=== PATIENT | female | born 1955 | race Caucasian/White ===

== ENCOUNTER 2023-07-12 12:03 | Emergency (ER) | payer MEDICARE, SELFPAY ==
--- NOTE | ~2023-07-12 | XR_ITS ---
EXAMINATION: XR LUMBOSACRAL SPINE CLINICAL INFORMATION: Pain COMPARISON: None available. TECHNIQUE: Three views of the lumbosacral spine. FINDINGS: Minimal curvature the spine to the left. 5 lumbar type vertebral bodies are identified. Multilevel spurring. Mild vertebral body height losses of T12, L1, L2 and L3. Multilevel spurring. T12/L1, L1/L2 disc space narrowings. Pedicles and SI joints within normal limits. Phleboliths. Nonspecific bowel pattern. XR/XR lumbar spine 2-3V IMPRESSION: Mild degenerative changes and mild compression deformities.
--- NOTE | ~2023-07-12 | CT_ITS ---
EXAMINATION: CT HEAD WITHOUT CONTRAST CLINICAL INFORMATION: Trauma. Pain. COMPARISON: None available. TECHNIQUE: Contiguous axial imaging was performed from the skull base to vertex without intravenous administration of contrast. This CT examination was performed using dose optimization techniques as appropriate, variously including the following: *Automated exposure control *Adjustment of mA and/or kV according to patient size (this includes techniques or standardized protocols for targeted exams where dose is matched to indication/reason for exam; i.e. extremities or head) *Use of iterative reconstruction technique DLP: 578 mGy-cm FINDINGS: The lateral, third and fourth ventricles are normally outlined. The cortical sulci and basal cisterns are normally outlined as well. There is no acute territorial defect, hemorrhage or midline shift. The extra-axial spaces are unremarkable. Calvarium: Intact. Maxillofacial sinuses and mastoids: Clear as visualized. CT/CT head/brain wo IV con IMPRESSION: No acute intracranial pathology.
[2023-07-12 12:41] VITALS: BP 147/92; PULSE 64; RESP 17; TEMP 36.5; O2SAT 97; BMI 47.8
--- NOTE | 2023-07-12 12:44 | ED_ITS ---
HPI - General Adult General Chief complaint: Fall Stated complaint: fall back inj Time Seen by Provider: 07/12/23 19:57 Source: patient and RN notes reviewed Mode of arrival: ambulatory Limitations: no limitations History of Present Illness HPI narrative: 67-year-old female presents for evaluation of lower back pain. Patient reports that she slipped and fell backwards yesterday linear her buttocks She complains of back pain since. The pain radiates to the left side. Patient reports that she struck her head with denies any headache. She is on Coumadin Her pain is 7/10. Her pain is worse with walking. She walks at baseline with a cane Denies any fevers, chills Related Data Previous Rx's Medication Instructions Recorded oxycodone 5 mg tablet 5 mg PO TID PRN severe pain (scale 07/12/23 score 7-10) #15 tabs Allergies Allergy/AdvReac Type Severity Reaction Status Date / Time No Known Allergies Allergy Unverified 04/10/20 18:34 Review of Systems Constitutional: Constitutional: Denies chills, Denies fever(s) and Denies frequent falls Cardiovascular: Cardiovascular: Denies chest pain, Denies syncope and Denies dyspnea Respiratory: Respiratory: Denies cough and Denies dyspnea Gastrointestinal: Gastrointestinal: Denies abdominal pain, Denies nausea and Denies vomiting Musculoskeletal: Musculoskeletal: Reports back pain Integumentary/Breasts: Skin/Breast: Denies rash Neurologic: Denies syncope and Denies frequent falls PMFSH Social History Social History Smoked in Last 30 Days: No Use of substances other than those prescribed or required for medical reasons: No Advance Directives: No Advance Directives Information Provided: No Physical Exam ED Vital Signs: Vital Signs - 24 hr 07/12/23 12:41 07/12/23 19:28 Temperature 97.7 F 97.7 F Pulse Rate 64 60 Respiratory Rate 17 14 Blood Pressure 147/92 H 190/69 H Pulse Oximetry 97 97 Oxygen Delivery Method Room Air Room Air BMI result Body Mass Index 47.8 Const General: healthy appearing, comfortable, no acute distress, alert and awake Nutritional Appearance: well nourished Orientation/consciousness: patient oriented x3 HENMT Head: Yes normocephalic and Yes atraumatic Eyes Eyelids: Yes eyelids normal Conjunctivae: conjunctivae normal Sclerae: sclerae normal Corneas: corneas normal Pupils: Equal, round and reactive pupils present EOM: EOMs intact bilaterally Neck Neck: Yes full ROM Resp Effort & Inspection: normal respiratory effort, able to speak in complete sentences and not labored GI Inspection: No distended Palpation (GI): Soft to palpation, not firm, nontender, no guarding and not rigid Back/Spine/Pelvis Other: Patient has tenderness across the lumbar vertebral spine and paraspinous muscles bilaterally. Negative straight leg raise. Skin General skin exam: elasticity normal Neuro General: patient oriented x3 Cranial nerves: Yes Equal, round and reactive pupils present and Yes Bilaterally intact EOM present Cognition (Neuro): normal cognition Extrem Other: Moving all extremities well without any obvious deformities Course Course Course Narrative: RME- 67-year-old female presents for evaluation of lower back pain after a fall. Patient reports that she fell yesterday because she was caring her dogs. She fell backwards, hit her head. She is anticoagulated but denies loss of consciousness or significant headache. Plan for x-ray lumbar spine as well as CT scan the brain due to the anticoagulation. No neuro deficits Medical Decision Making Medical Decision Making MDM Narrative: 67-year-old female presents for evaluation a nonsyncopal fall. Plan for x-ray of the lumbar spine any of her discomfort. Given that she struck her head and is on Coumadin will get a CT scan the brain. Differential Diagnosis Differential Diagnoses: The differential diagnosis associated with the presenta tion includes Acute lower back pain Muscle strain Sciatica Radiculopathy Compression fracture Independent Interpretation I performed an independent interpretation of an: Plain X-Ray (Agree with Radiology interpretation) and CT Scan (No traumatic injury to the brain) Radiology Impression Discussion of test interpretation with radiology: I have reviewed the radiologist's reading. (Multiple compression deformities at T12, L1, L2, L3) Radiologist Impression: CT scan the brain without traumatic injury Discharge Plan Discharge Clinical Impression: Compression fracture of lumbar vertebra Patient Disposition: Home, Self-Care Instructions: Vertebral Compression Fracture (ED) Additional Instructions: You have a compression fracture of T12, L1, L2, L3. It is possible that there is some degree of chronicity to these or they may have all occurred from your fall Take oxycodone for severe or breakthrough pain This may make you sleepy, did not drink alcohol or drive taking Follow-up with your primary doctor You may also follow-up with Dr. Chen Neurosurgery Prescriptions: New oxycodone 5 mg tablet 5 mg PO TID PRN (Reason: severe pain (scale score 7-10)) Qty: 15 0RF Rx Instructions: Partial Fill upon patient request. Referrals: Joseph Chen MD, PhD [Physician] - (multiple compression fractures) Stand Alone Forms: Work/School Release Interventions: ED Discharge Assessment Last Done: 07/12/23 20:17 Discharge Date/Time: 07/12/23 20:18
[2023-07-12 19:28] VITALS: BP 190/69; PULSE 60; RESP 14; TEMP 36.5; O2SAT 97
== END 2023-07-12 20:18 | disposition home or self-care (01) ==
PROVIDERS: Emergency Provider Internal Medicine; PCP Internal Medicine
DX: M54.50 Low back pain, unspecified (principal); R51.9 Headache, unspecified
CPT/HCPCS: 70450; 72100; 99284

== ENCOUNTER 2024-12-20 14:19 | Outpatient (AMB) | payer MEDICARE, SELFPAY ==
--- NOTE | 2024-12-20 14:22 | MHC.OFFVIS ---
Vital Signs 12/20/24 14:24 Height 5 ft 4.17 in Weight 261 lb 8 oz BMI 44.6 BP 110/90 H Blood Pressure Location Lt brachial Position Sitting Pulse 92 Pulse Source Pulse Oximeter Pulse Oximetry (%) 98 Oxygen Delivery Method Room Air Intake Visit Reasons: RA Intake Note: Patient presents today for an RA follow up. Accompanied by: Self / Same As Patient Allergies No Known Allergies Allergy (Verified 12/20/24 14:24) HPI HPI RA: Details: R knee pain has gotten worse in the last 3 months. Last cortisone injection of right knee was 1 year ago. The one before the last benefited patient for a year. Pain in bilateral feet and knee secondary to osteoarthritis is uncontrolled. Physical Exam Vital Signs: Last Vital Signs Pulse 92 12/20/24 14:24 BP 110/90 H 12/20/24 14:24 Pulse Ox 98 12/20/24 14:24 Oxygen Delivery Method Room Air 12/20/24 14:24 BMI result Body Mass Index 44.6 Const Other: General: Comfortable CVS: RRR Respiratory: clear to auscultation bilaterally. Good respiratory effort Skin: No lesions seen MSK: Tender to palpate right knee along joint line. No effusion. No warmth. Knee flexion 45 degrees. Office Procedures AMB Joint Injection/Aspiration Joint Injection/Aspiration Details: Right knee joint Prep: site was prepped using aseptic technique Injected: 40 mg of, Kenalog, with 1 mL of and 1% plain lidocaine Procedure: Informed verbal consent was obtained. The patient tolerated the procedure well. Postprocedure protocol was discussed with patient. Coding 97501 - Large joint Procedure code (CPT) selection complete Office Meds lidocaine (PF) 10 mg/mL (1 %) injection solution Performing Provider: Socrates Galeas MD Performing Location: [facility] Administered by: Socrates Galeas MD on 12/20/24 20:45 Dose Route Admin Location Dispensed Lot Number Expiration Date [facility] [employer] 10 mg Infiltration 2 mL [id number] [facility] Kenalog 40 mg/mL suspension for injection Performing Provider: Socrates Galeas MD Performing Location: [facility] Administered by: Socrates Galeas MD on 12/20/24 20:45 Dose Route Admin Location Dispensed Lot Number Expiration Date [facility] [employer] 40 mg intra-articular 1 mL [id number] [employer] Assessment & Plan Assessment & Plan (1) Osteoarthritis of right knee: Comment: Uncontrolled pain. Code(s): M17.11 - Unilateral primary osteoarthritis, right knee Category: Medical Qualifiers: Osteoarthritis type: primary Qualified Code(s): M17.11 - Unilateral primary osteoarthritis, right knee Plan: Patient received right knee cortisone injection [facility] Return to clinic in 3 months Orders: Orders AMB Joint Injection/Aspiration Today M17.11 - Unilateral primary osteoarthritis, right knee Coding Level of Care Code Est Pt Level 3 (64669) Complex EM visit Add On G2211 Diagnoses Primary osteoarthritis of right knee M17.11 Osteoarthritis type: primary CPT Codes Coding - 16548 Large joint: 46430 - Large joint ([id number])
[2024-12-20 14:24] VITALS: BP 110/90; PULSE 92; O2SAT 98; BMI 44.6
== END 2024-12-20 15:12 | disposition home or self-care (01) ==
LOC: HO.RHES 14:19
PROVIDERS: PCP Internal Medicine; Visit Provider Internal Medicine Rheumatology
DX: M17.11 Unilateral primary osteoarthritis, right knee (principal)
CPT/HCPCS: 20610; 99213

== ENCOUNTER → 2024-12-20 14:19 | Outpatient (BNVA) | payer MEDICARE, SELFPAY | PROVIDERS: PCP Internal Medicine; Visit Provider Internal Medicine Rheumatology | DX: M17.11 Unilateral primary osteoarthritis, right knee (principal) | CPT/HCPCS: 20610; 99212; J2003; J3300 ==